=== PATIENT | female | born 1990 ===

== ENCOUNTER 2017-11-18 10:14 | Emergency (ER) | payer OTHER ==
[2017-11-18 10:32] VITALS: BMI 36.3
[2017-11-18 10:33] VITALS: BP 138/84; PULSE 97; RESP 17; TEMP 98.6; O2SAT 97
--- NOTE | 2017-11-18 10:52 | ED PDOC ---
Lower Extremity Pain/Injury Time Seen by Provider: 11/18/17 10:18 Chief Complaint (Nursing): Lower Extremity Problem/Injury Chief Complaint (Provider): Right foot pain, right arm pain History Per: Patient History/Exam Limitations: no limitations Onset/Duration Of Symptoms: Days Current Symptoms Are (Timing): Still Present Severity: Mild Pain Scale Rating Of: 3 Additional Complaint(s): Pt states 2 days ago she laptop fel on her right foot and today a chart at work fell on her right arm and foot. Pt states she went home and ice the area. PT states her boss called her and told her she had to go to the ER for evaluation. Pt ambulated to room without limp. Past Medical History Reviewed: Historical Data, Nursing Documentation, Vital Signs Vital Signs: Last Vital Signs Temp 98.6 F 11/18/17 10:31 Pulse 97 H 11/18/17 10:31 Resp 17 11/18/17 10:31 BP 138/84 11/18/17 10:31 Pulse Ox 97 11/18/17 10:31 - Medical History PMH: No Chronic Diseases - Surgical History Surgical History: No Surg Hx - Family History Family History: States: No Known Family Hx - Living Arrangements Living Arrangements: With Family - Social History Current smoker - smoking cessation education provided: No - Home Medications Home Medications: Ambulatory Orders Medication Instructions Recorded Ibuprofen [Motrin Tab] 800 mg PO Q6H PRN #20 tab 11/18/17 - Allergies Allergies/Adverse Reactions: Allergies Allergy/AdvReac Type Severity Reaction Status Date / Time No Known Allergies Allergy Verified 11/18/17 10:45 Review of Systems ROS Statement: Except As Marked, All Systems Reviewed And Found Negative Constitutional: Negative for: Fever, Chills Musculoskeletal: Positive for: Foot Pain Skin: Positive for: Bruising (right forearm ) Physical Exam - Reviewed Nursing Documentation Reviewed: Yes Vital Signs Reviewed: Yes - Physical Exam Appears: Positive for: Well, Non-toxic, No Acute Distress Head Exam: Positive for: ATRAUMATIC, NORMAL INSPECTION, NORMOCEPHALIC Skin: Positive for: Warm. Negative for: Normal Color (Mild ecchymosis, right anterior forearm ) Eye Exam: Positive for: Normal appearance ENT: Positive for: Normal ENT Inspection Neck: Positive for: Normal, Painless ROM Respiratory: Negative for: Accessory Muscle Use, Respiratory Distress Gastrointestinal/Abdominal: Positive for: Normal Exam, Soft. Negative for: Tenderness Back: Positive for: Normal Inspection Extremity: Positive for: Normal ROM, Other (stregnth 5/5 in UE and LE). Negative for: Tenderness, Deformity, Swelling Neurologic/Psych: Positive for: Alert, Oriented - ECG O2 Sat by Pulse Oximetry: 97 Disposition - Clinical Impression Clinical Impression: Left foot pain, Right wrist pain - Patient ED Disposition Is Patient to be Admitted: No Counseled Patient/Family Regarding: Diagnosis, Need For Followup - Disposition Disposition: Routine/Home Disposition Time: 10:50 Condition: GOOD Prescriptions: Ibuprofen [Motrin Tab] 800 mg PO Q6H PRN #20 tab PRN Reason: Pain Instructions: Foot Contusion (ED) Forms: [facility] (Congolese), [facility] ED School/Work Excuse
== END 2017-11-18 11:12 | disposition home or self-care (01) ==
LOC: H.ER 10:14
DX: M79.672 Pain in left foot (principal); M25.531 Pain in right wrist